=== PATIENT | male | born 1970 | race African-American/Black ===

== ENCOUNTER 2017-01-21 12:07 | Emergency (ER) | payer SELFPAY ==
[~2017-01-21] VITALS: Ht 177.8 cm; Wt 80.0 kg
[2017-01-21 12:13] VITALS: BP 130/91
== END 2017-01-21 18:09 | disposition left against medical advice (07) ==
LOC: ER 12:24
DX: M54.9 Dorsalgia, unspecified (principal); Z53.21 Procedure and treatment not carried out due to patient leaving prior to being seen by health care provider